=== PATIENT | female | born 1960 | race Caucasian/White ===

== ENCOUNTER 2017-06-05 08:52 | Emergency (ER) | payer BC ==
[2017-06-05] MEDS ORDERED: TORAdol 30 mg Injection IV ONE (09:11)
[2017-06-05] MEDS ORDERED: Sodium Chloride 0.9% 1000 ML 1,000 ML IV STA (09:11)
[2017-06-05] MEDS ORDERED: TORAdol 30 mg Injection ONE (09:14)
[2017-06-05] MEDS ORDERED: Sodium Chloride 0.9% 1000 ML 1,000 ML ONE (09:14)
--- NOTE | 2017-06-05 09:15 | ERPHSYRPT ---
- History of Present Illness Time Seen by Provider: 06/05/17 09:13 Historian: patient Exam Limitations: no limitations Physician History: mild to mod sudden lower left flank pain ache for one day constant, no NV, no fever, no injury, hx renal stones and left ovarian cyst Allergies/Adverse Reactions: No Known Drug Allergies Allergy (Verified 06/05/17 09:14) Home Medications: Pramipexole Di-HCl [Mirapex] 0.25 mg PO HS 05/01/12 [History] Omeprazole 20 MG [Prilosec 20 mg] 40 mg PO DAILY 06/07/13 [History] Meloxicam 7.5 mg PO DAILY 06/05/17 [History] Tamsulosin HCl [Flomax] 0.4 mg PO DAILY 06/05/17 [History] Hx Influenza Vaccination/Date Given: No Hx Pneumococcal Vaccination/Date Given: No - Review of Systems Constitutional: No Symptoms Eyes: No Symptoms Ears, Nose, & Throat: No Symptoms Respiratory: No Symptoms Cardiac: No Symptoms Abdominal/Gastrointestinal: Abdominal Pain, No Vomiting Genitourinary Symptoms: Urgency Musculoskeletal: No Back Pain Skin: No Symptoms Neurological: No Symptoms - Past Medical History Pertinent Past Medical History: Yes Neurological History: No Pertinent History ENT History: No Pertinent History Cardiac History: No Pertinent History Respiratory History: No Pertinent History Endocrine Medical History: No Pertinent History Musculoskeletal History: No Pertinent History GI Medical History: No Pertinent History History: No Pertinent History Psycho-Social History: Anxiety Female Reproductive Disorders: No Pertinent History - Past Surgical History Past Surgical History: Yes Neuro Surgical History: No Pertinent History Cardiac: No Pertinent History Respiratory: No Pertinent History Gastrointestinal: No Pertinent History, Hernia Repair Genitourinary: No Pertinent History Musculoskeletal: No Pertinent History Female Surgical History: Tubal Ligation Other Surgical History: Blood pressure bottomed out during last surgery - Social History Smoking Status: Current every day smoker How long have you smoked: 37 years Exposure to second hand smoke: Yes Drug Use: none - Nursing Vital Signs Nursing Vital Signs: Initial Vital Signs Temperature 97.3 F 06/05/17 09:03 Pulse Rate 72 06/05/17 09:03 Respiratory Rate 18 06/05/17 09:03 Blood Pressure 97/66 06/05/17 09:03 O2 Sat by Pulse Oximetry 98 06/05/17 09:03 Pain Scale Pain Intensity 4 - Physical Exam General Appearance: no apparent distress Eye Exam: PERRL/EOMI Ears, Nose, Throat Exam: moist mucous membranes Neck Exam: normal inspection Respiratory Exam: normal breath sounds Cardiovascular Exam: regular rate/rhythm Gastrointestinal/Abdomen Exam: tenderness, No distention, No rebound Back Exam: CVA tenderness Extremity Exam: normal inspection Neurologic Exam: alert, oriented x 3, cooperative Skin Exam: normal color, warm, dry - Course Nursing assessment & vital signs reviewed: Yes - CT Exams Abdomen/Pelvis CT Interpretation: Discussed w/radiologist, Other (7mm left renal stone and hydronephrosis, +left ovarian cyst) Ordered Tests: Active Orders 24 hr Category Date Time Status IV Insertion STAT Care 06/05/17 09:11 Active ABDOMEN AND PELVIS W/0 CONTRAS [CT] Stat Exams 06/05/17 09:12 Completed CBC W DIFF Stat Lab 06/05/17 09:10 Completed CMP Stat Lab 06/05/17 09:10 Completed CULTURE,URINE Stat Lab 06/05/17 09:10 Received LIPASE Stat Lab 06/05/17 09:10 Completed UA W/ MICROSCOPIC Stat Lab 06/05/17 09:10 Completed Medication Summary Discontinued Medications Generic Name Dose Route Start Last Admin Trade Name Freq PRN Reason Stop Dose Admin Sodium Chloride 1,000 mls @ 999 mls/hr 06/05/17 09:11 06/05/17 09:14 Sodium Chloride 0.9% 1000 Ml IV 06/05/17 10:11 999 mls/hr .Q1H1M STA Administration Sodium Chloride Confirm 06/05/17 09:14 Sodium Chloride 0.9% 1000 Ml Administered 06/05/17 09:15 Dose 1,000 mls @ ud .ROUTE .STK-MED ONE Ketorolac Tromethamine 30 mg 06/05/17 09:11 06/05/17 09:14 Toradol 30 Mg Injection IV 06/05/17 09:12 30 mg STAT ONE Administration Ketorolac Tromethamine Confirm 06/05/17 09:14 Toradol 30 Mg Injection Administered 06/05/17 09:15 Dose 30 mg .ROUTE .STK-MED ONE Lab/Rad Data: Laboratory Result Diagrams 06/05/17 09:10 06/05/17 09:10 Laboratory Results 06/05/17 06/05/17 06/05/17 Range/Units 09:10 09:10 09:10 WBC 12.5 H (4.0-10.5) K/mm3 RBC 4.86 (4.1-5.4) M/mm3 Hgb 14.2 (12.0-16.0) gm/dl Hct 44.3 (35-47) % MCV 91.2 (78-100) fl MCH 29.2 (26-32) pg MCHC 32.1 (32-36) g/dl RDW 14.2 H (11.5-14.0) % Plt Count 247 (150-450) K/mm3 MPV 11.3 H (6-9.5) fl Gran % 65.4 (36.0-66.0) % Lymphocytes % 23.7 L (24.0-44.0) % Monocytes % 8.7 (0.0-12.0) % Eosinophils % 1.7 (0.00-5.0) % Basophils % 0.5 (0.0-0.4) % Basophils # 0.06 (0-0.4) Sodium 141 (136-145) mEq/L Potassium 3.4 L (3.5-5.1) mEq/L Chloride 104 (98-107) mEq/L Carbon Dioxide 25.7 (21-32) mEq/L Anion Gap 14.9 (5-15) MEQ/L BUN 11 (9-20) mg/dL Creatinine 0.88 (0.55-1.30) mg/dl Estimated GFR > 60 ML/MIN Glucose 145 H (70-110) MG/DL Calcium 9.3 (8.5-10.1) mg/dL Total Bilirubin 0.80 (0.2-1.0) mg/dL AST 18 (15-37) U/L ALT 30 (12-78) U/L Alkaline Phosphatase 116 (46-116) U/L Serum Total Protein 7.4 (6.4-8.2) gm/dL Albumin 3.9 (3.4-5.0) g/dL Lipase 115 (73-393) U/L Ur Collection Type VOID Urine Color YELLOW (YELLOW) Urine Appearance CLEAR (CLEAR) Urine pH 5.0 (5-6) Ur Specific [place] 1.025 (1.005-1.025) Urine Protein TRACE (Negative) Urine Ketones NEGATIVE (NEGATIVE) Urine Blood LARGE (0-5) Choco/ul Urine Nitrite NEGATIVE (NEGATIVE) Urine Bilirubin NEGATIVE (NEGATIVE) Urine Urobilinogen NORMAL (0-1) mg/dL Ur Leukocyte Esterase TRACE (NEGATIVE) Urine Microscopic RBC >100 (0-2) /HPF Urine Microscopic WBC 5-10 (0-5) /HPF Ur Epithelial Cells FEW (FEW) /HPF Urine Bacteria FEW (NEGATIVE) /HPF Urine Culture Reflexed YES (NO) Urine Glucose NEGATIVE (NEGATIVE) mg/dL Specimen Received 06/05 930 - Progress Progress: improved Progress Note: 06/05/17 10:25 pt improved, will see her Urologist tomorrow as arranged differential d/w pt as early appendicitis 06/05/17 10:27 Discussed with : Other (your Urologist, d/w [place]) Counseled pt/family regarding: lab results, diagnosis, need for follow-up, rad results - Departure Time of Disposition: 10:25 Departure Disposition: Home Clinical Impression: Renal colic on left side Condition: Stable Critical Care Time: No Referrals: ELISA HALL [Primary Care Provider] - Instructions: Abdominal Pain-Adult Additional Instructions: norco warnings given see your doctor tomorrow as arranged cipro, zofran, flomax return if worse
[2017-06-05 09:33] LABS: BASOPHIL % 0.5 % (0.0-0.4); Eosinophil % 1.7 % (0.00-5.0); Granulocytes % 65.4 % (36.0-66.0); Lymphocytes % 23.7 % (24.0-44.0); Mean Cell Volume 91.2 fl (78-100); Mean Corpuscular Hemoglobin 29.2 pg (26-32); Mean Platelet Volume 11.3 fl (6-9.5); Monocytes % 8.7 % (0.0-12.0); Platelet Count 247 K/mm3 (150-450); Red Blood Count 4.86 M/mm3 (4.1-5.4); Red Cell Distribution Width 14.2 % (11.5-14.0); White Blood Count 12.5 K/mm3 (4.0-10.5)
[2017-06-05 09:50] LABS: Collection Type VOID
[2017-06-05 09:51] LABS: Bilirubin NEGATIVE (NEGATIVE); Blood LARGE Ery/ul (0-5); COMPLETE URINE MICROSCOPIC? YES; Glucose NEGATIVE (NEGATIVE); Leukocyte Esterase TRACE (NEGATIVE)
--- NOTE | 2017-06-05 09:51 | XRAY ---
Indication: Left flank pain. History of kidney stones. Multiple contiguous axial images obtained through the abdomen and pelvis without contrast using renal stone protocol. Comparison: None Lung bases are clear. Heart is not enlarged. There is a 6-7 mm left UVJ calculus. Proximal left ureter is prominent up to 9 mm long with mild hydronephrosis consistent with partial obstructive uropathy. No perinephric stranding/fluid. Nonobstructing punctate right renal calculus. Noncontrasted stomach and bowel loops appear nonobstructed. Normal appendix. Previous cholecystectomy. 1.7 cm left ovary cyst. No free fluid/air. Remaining liver, pancreas, spleen, adrenal glands, kidneys, bladder, and uterus appear unremarkable for noncontrast exam. Mild aortoiliac calcifications without AAA. Osseous structures intact with mild degenerative changes throughout the lumbar spine. Impression: 1. 6-7 mm left UVJ calculus producing partial obstruction as detailed. Nonobstructing right renal micro-calculus. 2. 1.7 cm left ovary cyst. 3. Remaining CT abdomen/pelvis without contrast exam is negative. CT DI 23.60
[2017-06-05 09:52] LABS: ADD URINE CULTURE? YES (NO); Bacteria FEW /HPF (NEGATIVE); Epithelial Cells FEW /HPF (FEW)
[2017-06-05 10:12] LABS: ALBUMIN 3.9 g/dL (3.4-5.0); ALKALINE PHOSPHATASE 116 U/L (46-116); ANION GAP 14.9 MEQ/L (5-15); BLOOD UREA NITROGEN 11 mg/dL (9-20); CHLORIDE 104 mEq/L (98-107); Carbon Dioxide 25.7 mEq/L (21-32); Glucose 145 MG/DL (70-110); LIPASE 115 U/L (73-393); Potassium 3.4 mEq/L (3.5-5.1); SGOT/AST 18 U/L (15-37); SGPT/ALT 30 U/L (12-78); SODIUM 141 mEq/L (136-145); Total Protein 7.4 gm/dL (6.4-8.2)
[2017-06-05 10:17] VITALS: BP 140/84; O2SAT 97
[2017-06-05 10:57] VITALS: PULSE 72
== END 2017-06-05 10:57 | disposition home or self-care (01) ==
LOC: ED 08:52
DX: N23 Unspecified renal colic (principal); R10.9 Unspecified abdominal pain; R39.15 Urgency of urination
CPT/HCPCS: 36000; 36415; 74176; 80053; 81000; 83690; 85025; 87086; 96360; 96374; 99284; J1885

== ENCOUNTER 2019-12-10 02:09 | Emergency (ER) | payer BC, OTHER ==
[2019-12-10] MEDS ORDERED: Zofran 4 MG/2 ML VIAL IV ONE (02:16)
[2019-12-10] MEDS ORDERED: Zofran 4 MG/2 ML VIAL ONE ×2 (02:17→02:18)
[2019-12-10] MEDS ORDERED: ANTIVERT 25 MG PO ONE (02:29)
[2019-12-10] MEDS ORDERED: ANTIVERT 25 MG ONE (02:31)
[2019-12-10 02:40] LABS: Absolute Neutrophil Ct (ANC) 17.56 (1.4-6.9); BASOPHIL % 0.2 % (0.0-0.4); Basophil (Absolute #) 0.05 (0-0.4); Eosinophil % 0.5 % (0.00-5.0); Eosinophil (Absolute #) 0.11 (0-0.5); Hematocrit 46.4 % (35-47); Hemoglobin 15.3 gm/dl (12.0-16.0); Lymphocyte (Absolute #) 1.56 (1.0-4.6); Lymphocytes % 7.6 % (24.0-44.0); Mean Cell Volume 91.7 fl (78-100); Mean Corpuscular Hemoglobin 30.2 pg (26-32); Mean Platelet Volume 11.1 fl (7.5-11.0); Monocytes % 6.3 % (0.0-12.0); Neutrophil % 85.4 % (36.0-66.0); Platelet Count 243 K/mm3 (150-450); Red Blood Count 5.06 M/mm3 (4.1-5.4); Red Cell Distribution Width 14.9 % (11.5-14.0); White Blood Count 20.6 K/mm3 (4.0-10.5)
--- NOTE | 2019-12-10 02:51 | ERPHSYRPT ---
- History of Present Illness Source: patient, EMS Exam Limitations: other (Poor historian) Patient Subjective Stated Complaint: pt states she woke up at midnight with dizziness and vomiting. states she had some pain in her rlq but rlq pain has resolved. pt c/o cramps in her lower ext on arrival Triage Nursing Assessment: pt alert and oriented, answers questions. pt transfer to stretcher with assist of 3. respirations nonlabored. skin warm and dry. pt uncooperative at times. restless, up and down in bed while c/o leg pain. abd soft and nontender to light palpation. bowel sounds present. pupils equal and reactive. bilat upper and lower ext strength equal and wnl. Physician History: 59 yo wf transported to ER by ambulance presents w dizziness/N/V/RLQ(Resolving) pain since 12:00AM. Pt denies focal weakness/fever/chest pain/cough/hematemesis/ melena/hematochezia. She self caths due to large post void residuals. Timing/Duration: other (2 hours) Severity: moderate Character of Deficits: altered sensation Baseline/Normal Cognition: alert oriented x 3 Current Cognition: alert oriented x 3 Associated Symptoms: nausea, vomiting, weakness Allergies/Adverse Reactions: No Known Drug Allergies Allergy (Verified 12/10/19 02:38) Home Medications: Pramipexole Di-HCl [Mirapex] 0.25 mg PO HS 05/01/12 [History] Omeprazole 20 MG [Prilosec 20 mg] 40 mg PO DAILY 06/07/13 [History] Tamsulosin HCl [Flomax] 0.4 mg PO HS 06/05/17 [History] Bethanechol Chloride 50 mg PO BID 12/10/19 [History] Phentermine HCl 37.5 mg PO DAILY 12/10/19 [History] Piroxicam 20 mg PO DAILY 12/10/19 [History] Hx Tetanus, Diphtheria Vaccination/Date Given: Yes Hx Influenza Vaccination/Date Given: No Hx Pneumococcal Vaccination/Date Given: No Immunizations Up to Date: Yes Travel Risk - International Travel Have you traveled outside of the country in past 3 weeks: No - Coronavirus Screening Are you exhibiting any of the following symptoms?: No Close contact with a COVID-19 positive Pt in past 14-21 Days: No - Review of Systems Constitutional: Weakness Eyes: No Symptoms Ears, Nose, & Throat: No Symptoms Respiratory: No Symptoms Cardiac: No Symptoms Abdominal/Gastrointestinal: Abdominal Pain, Nausea, Vomiting, No Diarrhea Genitourinary Symptoms: No Symptoms Musculoskeletal: No Symptoms Skin: No Symptoms Neurological: Dizziness, No Focal Weakness Psychological: No Symptoms Endocrine: No Symptoms Hematologic/Lymphatic: No Symptoms Immunological/Allergic: No Symptoms - Past Medical History Pertinent Past Medical History: Yes Neurological History: No Pertinent History ENT History: No Pertinent History Cardiac History: No Pertinent History Respiratory History: No Pertinent History Endocrine Medical History: No Pertinent History Musculoskeletal History: No Pertinent History GI Medical History: No Pertinent History History: No Pertinent History Psycho-Social History: Anxiety Female Reproductive Disorders: No Pertinent History Other Medical History: kidney stones. pt states she has been having trouble emptying her bladder- is curretnly seeing a urologist - Past Surgical History Past Surgical History: Yes Neuro Surgical History: No Pertinent History Cardiac: No Pertinent History Respiratory: No Pertinent History Gastrointestinal: Cholecystectomy, Hernia Repair Genitourinary: No Pertinent History Musculoskeletal: No Pertinent History Female Surgical History: Tubal Ligation Other Surgical History: Blood pressure bottomed out during last surgery - Social History Smoking Status: Current every day smoker How long have you smoked: 37 years Exposure to second hand smoke: Yes Drug Use: none Patient Lives Alone: No - Nursing Vital Signs Nursing Vital Signs: Initial Vital Signs Temperature 97.4 F 12/10/19 02:22 Pulse Rate 77 12/10/19 02:22 Respiratory Rate 18 12/10/19 02:22 Blood Pressure 149/68 12/10/19 02:22 O2 Sat by Pulse Oximetry 100 12/10/19 02:22 Pain Scale Pain Intensity 4 - Francisco Coma Scale Best Eye Response (Poca): (4) open spontaneously Best Verbal Response (Francisco): (5) oriented Best Motor Response (Poca): (6) obeys commands Francisco Total: 15 - Physical Exam General Appearance: mild distress Eye Exam: bilateral eye: normal inspection, PERRL, EOMI Ears, Nose, Throat Exam: normal ENT inspection, TMs normal, pharynx normal, moist mucous membranes Neck Exam: normal inspection, non-tender, full range of motion, No Brudzinski, No Kernig's Respiratory: normal breath sounds, lungs clear, airway intact Cardiovascular: regular rate/rhythm, normal peripheral pulses, No murmur Gastrointestinal: soft, normal bowel sounds, tenderness (Mild RLQ ttp), No distention Rectal Exam: deferred Back Exam: normal inspection, normal range of motion, No CVA tenderness Extremity Exam: normal inspection, normal range of motion, No pedal edema, No swelling Peripheral Pulses: carotid (R): 2+, carotid (L): 2+ Mental Status: alert, oriented x 3, 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 Exam: normal hearing, normal speech, PERRL, No abnormal eye position, No abnormal gag reflex Coordination/Gait: abnormal gait Motor/Sensory: no motor deficit, no sensory deficit, no pronator drift, negative Babinski's sign (Pt off balance when standing) DTR: bicep (R): 2+, bicep (L): 2+, knee (R): 2+, knee (L): 2+ Skin Exam: normal color, warm, dry, No rash SpO2 Interpretation: normal SpO2: 100 O2 Delivery: Room Air - Course EKG Interpreted by Me: RATE (NSR/Normal EKG) - CT Exams Head CT Interpretation: Tele-radiologist Report (Neg) Other CT Interpretation: Tele-radiologist Report (CTA of head/neck neg) Abdomen/Pelvis CT Interpretation: Tele-radiologist Report (Mild R hydro/Normal appendix) Ordered Tests: Active Orders 24 hr Category Date Time Status EKG-ER Only STAT Care 12/10/19 02:18 Active cath [Cath for Residual-In & Out] STAT Care 12/10/19 05:29 Active ABDOMEN AND PELVIS W/0 CONTRAS [CT] Stat Exams 12/10/19 04:22 Ordered CTA HEAD W AND/OR WO CONTRAST [CT] Stat Exams 12/10/19 03:13 Taken HEAD WITHOUT CONTRAST [CT] Stat Exams 12/10/19 02:22 Taken AMYLASE Stat Lab 12/10/19 02:35 Completed CBC W DIFF Stat Lab 12/10/19 02:35 Completed CMP Stat Lab 12/10/19 02:35 Completed CULTURE,URINE Stat Lab 12/10/19 02:56 Received LIPASE Stat Lab 12/10/19 02:35 Completed Lactic Acid Stat Lab 12/10/19 03:20 Completed TROPONIN Q3H Lab 12/10/19 02:35 Completed TROPONIN Q3H Lab 12/10/19 05:15 Received TROPONIN Q3H Lab 12/10/19 08:15 Ordered TROPONIN Q3H Lab 12/10/19 11:15 Ordered TROPONIN Q3H Lab 12/10/19 14:15 Ordered UA W/RFX UR CULTURE Stat Lab 12/10/19 02:56 Completed Urine Triage Profile Stat Lab 12/10/19 02:56 Completed Medication Summary Generic Name Dose Route Start Last Admin Trade Name Telma PRN Reason Stop Dose Admin Ceftriaxone Sodium/Dextrose 1 g in 50 mls @ 100 mls/hr 12/10/19 05:29 05:34 Rocephin 1 Gm-D5w 50 Ml Bag IV 12/10/19 05:58 100 mls/hr STAT STA 100 mls/hr Administration Discontinued Medications Generic Name Dose Route Start Last Admin Trade Name Telma PRN Reason Stop Dose Admin Ceftriaxone Sodium/Dextrose Confirm 12/10/19 05:31 Rocephin 1 Gm-D5w 50 Ml Bag Administered 12/10/19 05:32 Dose 1 g in 50 mls @ ud IV .STK-MED ONE Meclizine HCl 25 mg 12/10/19 02:29 12/10/19 02:31 Antivert 25 Mg PO 12/10/19 02:30 25 mg STAT ONE Administration Meclizine HCl Confirm 12/10/19 02:31 Antivert 25 Mg Administered 12/10/19 02:32 Dose 25 mg .ROUTE .STK-MED ONE Ondansetron HCl 4 mg 12/10/19 02:16 12/10/19 02:31 Zofran 4 Mg/2 Ml Vial IV 12/10/19 02:17 4 mg STAT ONE Administration Ondansetron HCl Confirm 12/10/19 02:17 Zofran 4 Mg/2 Ml Vial Administered 12/10/19 02:18 Dose 4 mg .ROUTE .STK-MED ONE Ondansetron HCl Confirm 12/10/19 02:18 Zofran 4 Mg/2 Ml Vial Administered 12/10/19 02:19 Dose 4 mg .ROUTE .STK-MED ONE Lab/Rad Data: Laboratory Result Diagrams 12/10/19 02:35 12/10/19 02:35 Laboratory Results 12/10/19 12/10/19 12/10/19 Range/Units 03:20 02:56 02:56 WBC (4.0-10.5) K/mm3 RBC (4.1-5.4) M/mm3 Hgb (12.0-16.0) gm/dl Hct (35-47) % MCV (78-100) fl MCH (26-32) pg MCHC (32-36) g/dl RDW (11.5-14.0) % Plt Count (150-450) K/mm3 MPV (7.5-11.0) fl Gran % (36.0-66.0) % Eos # (Auto) (0-0.5) Absolute Lymphs (auto) (1.0-4.6) Absolute Monos (auto) (0.0-1.3) Lymphocytes % (24.0-44.0) % Monocytes % (0.0-12.0) % Eosinophils % (0.00-5.0) % Basophils % (0.0-0.4) % Absolute Granulocytes (1.4-6.9) Basophils # (0-0.4) Sodium (137-145) mmol/L Potassium (3.5-5.1) mmol/L Chloride (98-107) mmol/L Carbon Dioxide (22-30) mmol/L Anion Gap (5-15) MEQ/L BUN (7-17) mg/dL Creatinine (0.52-1.04) mg/dL Estimated GFR ML/MIN Glucose (74-106) mg/dL Lactic Acid 1.2 (0.4-2.0) Calcium (8.4-10.2) mg/dL Total Bilirubin (0.2-1.3) mg/dL AST (14-36) U/L ALT (0-35) U/L Alkaline Phosphatase (38-126) U/L Troponin I (0.000-0.034) ng/mL Serum Total Protein (6.3-8.2) g/dL Albumin (3.5-5.0) g/dL Amylase (30-110) U/L Lipase (23-300) U/L Urine Color YELLOW (YELLOW) Urine Appearance CLOUDY (CLEAR) Urine pH 6.0 (5-6) Ur Specific [place] 1.005 (1.005-1.025) Urine Protein 30 (Negative) Urine Ketones TRACE (NEGATIVE) Urine Blood LARGE (0-5) Choco/ul Urine Nitrite POSITIVE (NEGATIVE) Urine Bilirubin NEGATIVE (NEGATIVE) Urine Urobilinogen NEGATIVE (0-1) mg/dL Ur Leukocyte Esterase LARGE (NEGATIVE) Urine WBC (Auto) >100 (0-5) /HPF Urine RBC (Auto) 6-10 (0-2) /HPF U Epithel Cells (Auto) NONE (FEW) /HPF Urine Bacteria (Auto) MODERATE (NEGATIVE) /HPF Urine Culture Reflexed YES (NO) Urine Glucose NEGATIVE (NEGATIVE) mg/dL Urine Opiates Level NEGATIVE (NEGATIVE) Ur Methadone NEGATIVE (NEGATIVE) Urine Barbiturates NEGATIVE (NEGATIVE) Ur Phencyclidine (PCP) NEGATIVE (NEGATIVE) Urine Amphetamine NEGATIVE (NEGATIVE) U Benzodiazepine Level NEGATIVE (NEGATIVE) Urine Cocaine NEGATIVE (NEGATIVE) Urine Marijuana (THC) NEGATIVE (NEGATIVE) 12/10/19 12/10/19 12/10/19 Range/Units 02:35 02:35 02:35 WBC 20.6 H (4.0-10.5) K/mm3 RBC 5.06 (4.1-5.4) M/mm3 Hgb 15.3 (12.0-16.0) gm/dl Hct 46.4 (35-47) % MCV 91.7 (78-100) fl MCH 30.2 (26-32) pg MCHC 33.0 (32-36) g/dl RDW 14.9 H (11.5-14.0) % Plt Count 243 (150-450) K/mm3 MPV 11.1 H (7.5-11.0) fl Gran % 85.4 H (36.0-66.0) % Eos # (Auto) 0.11 (0-0.5) Absolute Lymphs (auto) 1.56 (1.0-4.6) Absolute Monos (auto) 1.30 (0.0-1.3) Lymphocytes % 7.6 L (24.0-44.0) % Monocytes % 6.3 (0.0-12.0) % Eosinophils % 0.5 (0.00-5.0) % Basophils % 0.2 (0.0-0.4) % Absolute Granulocytes 17.56 H (1.4-6.9) Basophils # 0.05 (0-0.4) Sodium 139 (137-145) mmol/L Potassium 3.8 (3.5-5.1) mmol/L Chloride 104 (98-107) mmol/L Carbon Dioxide 26 (22-30) mmol/L Anion Gap 13.4 (5-15) MEQ/L BUN 13 (7-17) mg/dL Creatinine 0.68 (0.52-1.04) mg/dL Estimated GFR > 60.0 ML/MIN Glucose 147 H (74-106) mg/dL Lactic Acid (0.4-2.0) Calcium 9.2 (8.4-10.2) mg/dL Total Bilirubin 0.70 (0.2-1.3) mg/dL AST 24 (14-36) U/L ALT 19 (0-35) U/L Alkaline Phosphatase 112 (38-126) U/L Troponin I < 0.012 (0.000-0.034) ng/mL Serum Total Protein 7.2 (6.3-8.2) g/dL Albumin 4.3 (3.5-5.0) g/dL Amylase 103 (30-110) U/L Lipase 107 (23-300) U/L Urine Color (YELLOW) Urine Appearance (CLEAR) Urine pH (5-6) Ur Specific [place] (1.005-1.025) Urine Protein (Negative) Urine Ketones (NEGATIVE) Urine Blood (0-5) Choco/ul Urine Nitrite (NEGATIVE) Urine Bilirubin (NEGATIVE) Urine Urobilinogen (0-1) mg/dL Ur Leukocyte Esterase (NEGATIVE) Urine WBC (Auto) (0-5) /HPF Urine RBC (Auto) (0-2) /HPF U Epithel Cells (Auto) (FEW) /HPF Urine Bacteria (Auto) (NEGATIVE) /HPF Urine Culture Reflexed (NO) Urine Glucose (NEGATIVE) mg/dL Urine Opiates Level (NEGATIVE) Ur Methadone (NEGATIVE) Urine Barbiturates (NEGATIVE) Ur Phencyclidine (PCP) (NEGATIVE) Urine Amphetamine (NEGATIVE) U Benzodiazepine Level (NEGATIVE) Urine Cocaine (NEGATIVE) Urine Marijuana (THC) (NEGATIVE) - Progress Progress: improved Progress Note: 12/10/19 05:31 Pt given 1L NS bolus/Zofran 4mg IV x1/Meclizine 25mg po x1 WBC 20.6 w >100wbc and mod bacteria in urine Pt given 1gm IV rocephin Counseled pt/family regarding: lab results, rad results - Departure Departure Disposition: Home Clinical Impression: Vertigo, UTI (urinary tract infection) Condition: Stable Critical Care Time: No Referrals: CINDY JOHNSON MD [Primary Care Provider] - Instructions: Urinary Tract Infections in Adults, Vertigo (a Type of Dizziness ) (DC), Dizziness, Nonvertigo, (DC) Additional Instructions: Follow up with your urologist in 1-2 days Start Bactrim twice a day for 5 days Meclizine as needed for dizziness Return to ER as needed Prescriptions: Meclizine HCl 25 mg [Antivert 25 mg] 25 mg PO QID PRN PRN #20 tablet PRN Reason: Dizziness Sulfamethoxazole/Trimethoprim [Bactrim Ds Tablet] 1 each PO BID 5 Days #10 tablet
[2019-12-10 02:53] LABS: ALBUMIN 4.3 g/dL (3.5-5.0); ALKALINE PHOSPHATASE 112 U/L (38-126); AMYLASE 103 U/L (30-110); ANION GAP 13.4 MEQ/L (5-15); BLOOD UREA NITROGEN 13 mg/dL (7-17); CHLORIDE 104 mmol/L (98-107); Calcium 9.2 mg/dL (8.4-10.2); Carbon Dioxide 26 mmol/L (22-30); Creatinine 1 0.68 mg/dL (0.52-1.04); Glucose 147 mg/dL (74-106); LIPASE 107 U/L (23-300); Potassium 3.8 mmol/L (3.5-5.1); SGOT/AST 24 U/L (14-36); SGPT/ALT 19 U/L (0-35); SODIUM 139 mmol/L (137-145); Total Protein 7.2 g/dL (6.3-8.2)
[2019-12-10 03:05] LABS: Appearance CLOUDY (CLEAR); Bacteria MODERATE /HPF (NEGATIVE); Bilirubin NEGATIVE (NEGATIVE); Blood LARGE Ery/ul (0-5); Glucose NEGATIVE (NEGATIVE); Ketones TRACE (NEGATIVE); Leukocyte Esterase LARGE (NEGATIVE); Nitrite POSITIVE (NEGATIVE); Protein,Urine Dip 30 (Negative); Specific Gravity 1.005 (1.005-1.025); Urobilinogen NEGATIVE mg/dL (0-1); WBC >100 /HPF (0-5)
[2019-12-10 03:15] LABS: Amphetamine,Urine NEGATIVE (NEGATIVE); Barbiturate,Urine NEGATIVE (NEGATIVE); Benzodiazepine,Urine NEGATIVE (NEGATIVE); Cocaine,Urine NEGATIVE (NEGATIVE); Methadone,Urine NEGATIVE (NEGATIVE); Opiate,Urine NEGATIVE (NEGATIVE); PCP,Urine NEGATIVE (NEGATIVE); THC,Urine NEGATIVE (NEGATIVE)
[2019-12-10 05:00] VITALS: PULSE 75
[2019-12-10 05:12] VITALS: O2SAT 100
[2019-12-10] MEDS ORDERED: ROCEPHIN 1 Gm-D5w 50 ml Bag** 1 G/50 ML IVPB IV STA (05:29)
[2019-12-10] MEDS ORDERED: ROCEPHIN 1 Gm-D5w 50 ml Bag** 1 G/50 ML IVPB IV ONE (05:31)
[2019-12-10 06:36] VITALS: BP 101/61
--- NOTE | 2019-12-10 08:58 | XRAY ---
Indication: Dizziness. Elevated WBC. Multiple contiguous images obtained through the head without contrast. Comparison: None Patient refused to remove bilateral earrings producing mild beam artifact. Ventriculosulcal pattern appears symmetric. No acute intracranial hemorrhage, abnormal extra-axial fluid collection, or mass effect. Fourth ventricle is midline without hydrocephalus. Fox-white matter differentiation preserved. Bony calvarium intact. Visualized paranasal sinuses and mastoid air cells are clear. Impression: Beam artifact from patient's earrings. Remaining CT head without contrast exam is negative. Comment: Preliminary interpretation was made by [facility]. No critical discrepancy.
--- NOTE | 2019-12-10 09:04 | XRAY ---
Indication: Dizziness. Elevated WBC. Conventional contrast enhanced CTA neck was performed using 80 cc Isovue 370 contrast. Sagittal and coronal reformatted images obtained. Comparison: None Aortic arch demonstrates anatomic variant for bovine arch. Minimal calcifications without aneurysm/dissection. Mild eccentric calcifications at the origin of the left subclavian artery without critical stenosis/obstruction. Right carotid circulation demonstrates normal widely patent CTA appearance to the common carotid, carotid bulb, internal carotid, and external carotid arteries. Left carotid circulation also demonstrates normal widely patent CTA appearance to the common carotid, carotid bulb, internal carotid, and external carotid arteries. Vertebral arteries are bilaterally patent with the right slightly larger in caliber. Jugular veins are bilaterally symmetric and unremarkable. Remaining visualized soft tissues are unremarkable. A few small subcentimeter cervical lymph nodes, none pathologically enlarged. Thyroid gland enhances homogeneously. Supra and infraglottic airway are patent. Visualized cervical thoracic spine intact. Lung apices demonstrates mild bilateral dependent atelectasis. Impression: 1. Minimal calcifications aortic arch and origin of the left subclavian artery. 2. Remaining CTA neck is normal. Comment: Preliminary interpretation was made by [facility]. No critical discrepancy.
--- NOTE | 2019-12-10 09:26 | XRAY ---
Indication: Dizziness. Elevated WBC. Multiple contiguous images obtained through the abdomen and pelvis without contrast as ordered. Comparison: June 05, 2017. Lung bases demonstrates minimal bilateral dependent atelectasis without infiltrate or effusion. Heart is not enlarged. Noncontrasted stomach and bowel loops appear nonobstructed. Normal appendix. Previous cholecystectomy. Contrast in the system from CTA performed earlier in the day. Right kidney is now edematous with mild perinephric stranding and moderate hydronephrosis. Proximal right ureter is also distended up to the L3-L4 level where there is immediate tapering suggestive of obstructive uropathy. There is normal opacification and caliber of the distal right ureter suggesting partial obstructive uropathy. Remaining liver, pancreas, spleen, kidneys, left kidney, left ureter, bladder, and uterus appear unremarkable. Again mild aortoiliac calcifications without AAA. Osseous structures intact again with mild lumbar degenerative changes. Worsening L5-S1 degenerative facet arthropathy with new 3-4 mm L5 anterolisthesis on S1. Impression: 1. New right renal edema, perinephric stranding, hydronephrosis, and proximal hydroureter as detailed favoring partial distal obstructive uropathy. Suspect ureteral calculus but difficult to confirm on this postcontrast exam. 2. Worsening L5-S1 degenerative changes with new minimal grade 1 spondylolisthesis. Comment: Preliminary interpretation was made by [facility]. No critical discrepancy.
== END 2019-12-10 06:36 | disposition home or self-care (01) ==
LOC: ED 02:09
DX: R42 Dizziness and giddiness (principal); N39.0 Urinary tract infection, site not specified; R11.2 Nausea with vomiting, unspecified; R53.1 Weakness; Z79.899 Other long term (current) drug therapy
CPT/HCPCS: 36415; 51701; 70450; 70496; 74176; 80053; 80307; 81001; 82150; 83605; 83690; 84484; 85025; 87077; 87086; 87186; 93005; 96374; 99284; J0696; J2405; A9270-GY

== ENCOUNTER 2020-12-24 18:18 | Emergency (ER) | payer BC, OTHER ==
[2012-05-02 09:37] VITALS: BP 112/78
== END 2020-12-24 18:45 | disposition left against medical advice (07) ==
LOC: ED 18:18
DX: R10.9 Unspecified abdominal pain (principal)
CPT/HCPCS: 99281

== ENCOUNTER 2022-04-08 22:02 | Emergency (ER) | payer OTHER ==
--- NOTE | 2022-04-08 22:51 | ERPHSYRPT ---
- History of Present Illness Source: patient, EMS Exam Limitations: no limitations Patient Subjective Stated Complaint: pt states "I was out and got super dizzy. I have a history of dizziness. I take medicine 3 times a day for it." Triage Nursing Assessment: pt came into the er via ambulance; pt is axo x4; c/o dizziness; pt denies pain; pupils 3 mm and PERRL; strong jonn last picker; clear apical tone; clear lung sounds in all lobe; c/o N/V; hypertensive Physician History: 61 yo wf w 5 yr h/o vertigo presents w sudden onset of dizziness/N/Vomiting while riding in a car. Pt takes Meclizine three times a day per Dr. Johnson and has recently seen a ENT who wanted to refer her to a vertigo specialist in [place], but pt refused. Her symptoms are rapidly improving. She denies focal weakness/headache/chest pain/dyspnea/abdominal pain/fever/cough/coryza. Timing/Duration: other (Started before arrival and improving) Character of Deficits: none Deficits: off balance Baseline/Normal Cognition: alert oriented x 3 Current Cognition: alert oriented x 3 Baseline Gait: walks w/o assistance Associated Symptoms: denies symptoms, nausea, vomiting Allergies/Adverse Reactions: No Known Drug Allergies Allergy (Verified 04/08/22 22:12) Home Medications: Pramipexole Di-HCl [Mirapex] 0.25 mg PO HS 05/01/12 [History] Omeprazole 20 MG [Prilosec 20 mg] 40 mg PO DAILY 06/07/13 [History] Tamsulosin HCl [Flomax] 0.4 mg PO HS 06/05/17 [History] Bethanechol Chloride 50 mg PO BID 12/10/19 [History] Phentermine HCl 37.5 mg PO DAILY 12/10/19 [History] Piroxicam 20 mg PO DAILY 12/10/19 [History] Hx Tetanus, Diphtheria Vaccination/Date Given: Yes Hx Influenza Vaccination/Date Given: No Hx Pneumococcal Vaccination/Date Given: No Travel Risk - International Travel Have you traveled outside of the country in past 3 weeks: No - Coronavirus Screening Are you exhibiting any of the following symptoms?: No Close contact with a COVID-19 positive Pt in past 14-21 Days: No - Vaccine Status Have you recieved a Covid-19 vaccination: Yes [employer]: Moderna - Vaccination Dates Date of 2cond Vaccination (if applicable): 2020 - Review of Systems Constitutional: No Symptoms Eyes: No Symptoms Ears, Nose, & Throat: No Symptoms Respiratory: No Symptoms Cardiac: No Symptoms Abdominal/Gastrointestinal: No Symptoms, Nausea, Vomiting Genitourinary Symptoms: No Symptoms Musculoskeletal: No Symptoms Skin: No Symptoms Neurological: No Symptoms, Dizziness Psychological: No Symptoms Endocrine: No Symptoms Hematologic/Lymphatic: No Symptoms Immunological/Allergic: No Symptoms - Past Medical History Pertinent Past Medical History: Yes Neurological History: Other ENT History: No Pertinent History Cardiac History: No Pertinent History Respiratory History: No Pertinent History Endocrine Medical History: No Pertinent History Musculoskeletal History: No Pertinent History GI Medical History: GERD, Gallbladder Disease, Hernia History: No Pertinent History Psycho-Social History: Anxiety, Depression Female Reproductive Disorders: No Pertinent History Other Medical History: kidney stones. pt states she has been having trouble emptying her bladder- is curretnly seeing a urologist - Past Surgical History Past Surgical History: Yes Neuro Surgical History: No Pertinent History Cardiac: No Pertinent History Respiratory: No Pertinent History Gastrointestinal: Cholecystectomy, Hernia Repair Genitourinary: No Pertinent History Musculoskeletal: No Pertinent History Female Surgical History: Tubal Ligation Other Surgical History: Blood pressure bottomed out during last surgery - Social History Smoking Status: Former smoker How long have you smoked: 37 years Exposure to second hand smoke: No Drug Use: none Patient Lives Alone: Yes - Nursing Vital Signs Nursing Vital Signs: Initial Vital Signs Temperature 96.9 F 04/08/22 22:13 Pulse Rate 67 04/08/22 22:13 Respiratory Rate 14 04/08/22 22:13 Blood Pressure 164/90 04/08/22 22:13 O2 Sat by Pulse Oximetry 97 04/08/22 22:13 Pain Scale Pain Intensity 0 Hypertensive - [place] Coma Scale Best Eye Response ([place]): (4) open spontaneously Best Verbal Response ([place]): (5) oriented Best Motor Response ([place]): (6) obeys commands [place] Total: 15 - Physical Exam General Appearance: no apparent distress Eye Exam: bilateral eye: normal inspection, PERRL, EOMI Ears, Nose, Throat Exam: normal ENT inspection, TMs normal, pharynx normal, moist mucous membranes Neck Exam: normal inspection, non-tender, supple, full range of motion, No meningismus, No mass, No Brudzinski, No Kernig's Respiratory: normal breath sounds, lungs clear, airway intact, No respiratory distress Cardiovascular: regular rate/rhythm, normal heart sounds, normal peripheral pulses, capillary refill <2 sec, No murmur Gastrointestinal: soft, normal bowel sounds, No tenderness Back Exam: normal inspection, normal range of motion, No CVA tenderness, No vertebral tenderness Extremity Exam: normal inspection, normal range of motion Peripheral Pulses: carotid (R): 2+, carotid (L): 2+ Mental Status: alert, oriented x 3, 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 Exam: normal hearing, normal speech, PERRL, tongue midline, No abnormal eye position, No abnormal gag reflex, No facial asymmetry, No facial droop, No facial paresthesias Coordination/Gait: normal cerebellar function Motor/Sensory: no motor deficit, no sensory deficit, no pronator drift, negative Babinski's sign DTR: bicep (R): 2+, bicep (L): 2+ Skin Exam: normal color, warm, dry, No rash SpO2 Interpretation: normal SpO2: 97 O2 Delivery: Room Air - Course EKG Interpreted by Me: RATE (NSR/Rate71/Normal Qt-QTc/No acute ST segment changes) - CT Exams Head CT Interpretation: Tele-radiologist Report (NAD) Ordered Tests: Active Orders 24 hr Category Date Time Status EKG-ER Only STAT Care 04/08/22 22:43 Completed HEAD WITHOUT CONTRAST [CT] Stat Exams 04/08/22 22:44 Taken CBC W DIFF Stat Lab 04/08/22 23:00 Completed CMP Stat Lab 04/08/22 23:00 Completed MAGNESIUM Stat Lab 04/08/22 23:00 Completed Manual Differential NC Stat Lab 04/08/22 23:00 Completed TROPONIN Q4H Lab 04/08/22 23:00 Completed Lab/Rad Data: Laboratory Result Diagrams 04/08/22 23:00 04/08/22 23:00 Laboratory Results 04/08/22 04/08/22 04/08/22 Range/Units 23:00 23:00 23:00 WBC 7.7 (4.0-10.5) x10^3/uL RBC 4.26 (4.1-5.4) x10^6/uL Hgb 12.3 (12.0-16.0) g/dL Hct 39.1 (35-47) % MCV 91.8 (78-100) fL MCH 28.9 (26-32) pg MCHC 31.5 L (32-36) g/dL RDW 13.1 (11.5-14.0) % Plt Count 255 (150-450) x10^3/uL MPV 10.3 (7.5-11.0) fL Gran % 57.7 (36.0-66.0) % Immature Gran % (Auto) 0.7 H (0.00-0.4) % Nucleat RBC Rel Count 0.0 (0.00-0.1) % Eos # (Auto) 0.17 (0-0.5) x10^3/uL Immature Gran # (Auto) 0.05 H (0.00-0.03) x10^3u/L Absolute Lymphs (auto) 2.32 (1.0-4.6) x10^3/uL Absolute Monos (auto) 0.64 (0.0-1.3) x10^3/uL Absolute Nucleated RBC 0.00 (0.00-0.01) x10^3u/L Lymphocytes % 30.2 (24.0-44.0) % Monocytes % 8.3 (0.0-12.0) % Eosinophils % 2.2 (0.00-5.0) % Basophils % 0.9 (0.0-0.4) % Absolute Granulocytes 4.43 (1.4-6.9) x10^3/uL Basophils # 0.07 (0-0.4) x10^3/uL Sodium 138 (137-145) mmol/L Potassium 3.6 (3.5-5.1) mmol/L Chloride 106 (98-107) mmol/L Carbon Dioxide 28 (22-30) mmol/L Anion Gap 7.9 (5-15) MEQ/L BUN 21 H (7-17) mg/dL Creatinine 0.78 (0.52-1.04) mg/dL Estimated GFR > 60.0 ML/MIN Glucose 127 H (74-106) mg/dL Calcium 8.7 (8.4-10.2) mg/dL Magnesium 2.0 (1.6-2.3) mg/dL Total Bilirubin 0.50 (0.2-1.3) mg/dL AST 43 H (14-36) U/L ALT 46 H (0-35) U/L Alkaline Phosphatase 88 (38-126) U/L Troponin I < 0.012 (0.000-0.034) ng/mL Serum Total Protein 6.7 (6.3-8.2) g/dL Albumin 4.1 (3.5-5.0) g/dL - Progress Progress: improved Progress Note: 04/09/22 00:20 Pt's dizziness was improving upon arrival and shortly resolved. Pt able to walk wo difficulty. Symptoms most likely due to chronic vertigo rather than occipital CVA. Counseled pt/family regarding: lab results, diagnosis, need for follow-up, rad results - Departure Departure Disposition: Home Clinical Impression: Vertigo Condition: Stable Critical Care Time: No Referrals: CINDY JOHNSON MD [Primary Care Provider] - Follow up/PCP as directed Instructions: Vertigo (a Type of Dizziness) (DC) Additional Instructions: Continue with Meclizine as needed Scopolomine patch every 3 days behind the ear as needed Return to ER for worsening dizziness,nausea-vomiting, or focal weakness Prescriptions: Scopolamine 1.5 mg Patch [Transderm Scop 1.5MG Patch] 1.5 mg TD 3XW PRN #4 patch PRN Reason: Dizziness
[2022-04-08 23:06] LABS: Absolute Neutrophil Ct (ANC) 4.43 x10^3/uL (1.4-6.9); Basophil (Absolute #) 0.07 x10^3/uL (0-0.4); Eosinophil % 2.2 % (0.00-5.0); Eosinophil (Absolute #) 0.17 x10^3/uL (0-0.5); Hematocrit 39.1 % (35-47); Hemoglobin 12.3 g/dL (12.0-16.0); Lymphocyte (Absolute #) 2.32 x10^3/uL (1.0-4.6); Lymphocytes % 30.2 % (24.0-44.0); Mean Cell Volume 91.8 fL (78-100); Mean Corpuscular Hemoglobin 28.9 pg (26-32); Mean Corpuscular Hgb Concent. 31.5 g/dL (32-36); Mean Platelet Volume 10.3 fL (7.5-11.0); Monocyte (Absolute #) 0.64 x10^3/uL (0.0-1.3); Monocytes % 8.3 % (0.0-12.0); Neutrophil % 57.7 % (36.0-66.0); Platelet Count 255 x10^3/uL (150-450); Red Blood Count 4.26 x10^6/uL (4.1-5.4); Red Cell Distribution Width 13.1 % (11.5-14.0); White Blood Count 7.7 x10^3/uL (4.0-10.5)
[2022-04-08 23:34] LABS: ALBUMIN 4.1 g/dL (3.5-5.0); ALKALINE PHOSPHATASE 88 U/L (38-126); ANION GAP 7.9 MEQ/L (5-15); BLOOD UREA NITROGEN 21 mg/dL (7-17); CHLORIDE 106 mmol/L (98-107); Calcium 8.7 mg/dL (8.4-10.2); Carbon Dioxide 28 mmol/L (22-30); Creatinine 1 0.78 mg/dL (0.52-1.04); EST GLOMERULAR FILTRATION RATE > 60.0 ML/MIN; Glucose 127 mg/dL (74-106); Potassium 3.6 mmol/L (3.5-5.1); SGOT/AST 43 U/L (14-36); SGPT/ALT 46 U/L (0-35); SODIUM 138 mmol/L (137-145); Total Protein 6.7 g/dL (6.3-8.2)
[2022-04-09 00:11] VITALS: BP 108/87; PULSE 75
[2022-04-09 00:15] VITALS: O2SAT 97
--- NOTE | 2022-04-09 07:22 | XRAY ---
Indication: Dizziness, nausea, and vomiting. Multiple contiguous axial images obtained through the head without contrast. Comparison: December 10, 2019 Normal appearing brain parenchyma, ventricles, and bony calvarium for patient's age. Visualized paranasal sinuses and mastoid air cells are clear. Impression: Continued normal CT head without contrast exam. Comment: Preliminary interpretation made by [facility]. No critical discrepancy.
== END 2022-04-09 00:32 | disposition home or self-care (01) ==
LOC: ED 22:02
DX: R42 Dizziness and giddiness (principal); R11.2 Nausea with vomiting, unspecified; Z79.899 Other long term (current) drug therapy
CPT/HCPCS: 36415; 70450; 80053; 83735; 84484; 85025; 93005; 99283